=== PATIENT | male | born 1970 | race Caucasian/White ===

== ENCOUNTER 2017-09-24 00:45 | Emergency (ER) | payer SELFPAY ==
[~2017-09-24] VITALS: Ht 162.6 cm; Wt 65.0 kg
[2017-09-24] MEDS ORDERED: IBUPROFEN 400MG TABLET PO ONE (05:30)
[2017-09-24 05:35] VITALS: BP 144/84
== END 2017-09-24 05:35 | disposition home or self-care (01) ==
LOC: ER 00:49
DX: J02.9 Acute pharyngitis, unspecified (principal); E11.9 Type 2 diabetes mellitus without complications
CPT/HCPCS: 99283